=== PATIENT | male | born 1980 | race African-American/Black ===

== ENCOUNTER 2019-09-03 18:56 | Emergency (ER) | payer OTHER, SELFPAY ==
[2019-09-03 19:09] VITALS: BP 126/79; PULSE 100; RESP 18; TEMP 36.8; O2SAT 97
--- NOTE | 2019-09-03 19:25 | ED.GENADULT ---
HPI - General Adult General Chief complaint: Upper Respiratory Infection Stated complaint: CHEST PAIN COUGH ROSARIO Time Seen by Provider: 09/03/19 19:25 Source: patient and RN notes reviewed Mode of arrival: ambulatory Limitations: no limitations History of Present Illness HPI narrative: 38-year-old -H[place]ian male presents with complains of upper respiratory infection symptoms, sinus pressure and congestion, dry cough, wheezing, and dyspnea for 3 days. Delsym, Symbicort, Albuterol Inhaler without relief. Benoit says he has been away from his nebulizer treatment. History of Asthma, Bronchitis, and COPD with numerous hospilations and intubations. Constant dry cough and intermittent productive cough (yellow phlegm). Rhinorrhea and nasal congestion. Denies sore throat. No high fevers, drooling, neck or throat swelling. No chest pain. Exacerbation factors consist of smoke exposure. Denies nausea, vomiting, and abdominal pain. Tolerating liquids well. Remains active. Some parts of this dictation were generated by voice recognition software and may contain typographical and/or grammatical inaccuracies. Related Data Home Medications Medication Instructions Recorded Confirmed Incruse Ellipta 1 inh INHALATION DAILY 09/04/19 09/04/19 albuterol sulfate 2 puff INHALATION BID 09/04/19 09/04/19 amlodipine [Norvasc] 10 mg PO DAILY 09/04/19 09/04/19 chlorthalidone 25 mg PO DAILY 09/04/19 09/04/19 fluticasone propion-salmeterol 1 puff INHALATION BID 09/04/19 09/04/19 [AirDuo RespiClick] fluticasone propionate [Flonase 2 spray INTRANASAL DAILY 09/04/19 09/04/19 Allergy Relief] loratadine 10 mg PO DAILY 09/04/19 09/04/19 montelukast 10 mg PO DAILY 09/04/19 09/04/19 Allergies Allergy/AdvReac Type Severity Reaction Status Date / Time No Known Allergies Allergy Verified 09/03/19 19:29 Review of Systems Review of Systems: Narrative: CONSTITUTIONAL: Denies fever, chills, sweats. EYES: Denies visual changes, redness, discharge. ENT: Complains of rhinorrhea, congestion, sinus pressure and congestion. Denies sore throat, otalgia. CARDIOVASCULAR: Denies chest pain, palpitations, edema. RESPIRATORY: Complains of dyspnea, wheezing, dry cough, intermittent productive cough. GASTROINTESTINAL: Denies abdominal pain, nausea, vomiting, diarrhea. GENITOURINARY: Denies dysuria, hematuria, abnormal discharge. SKIN: Denies rash or itching. MUSCULOSKELETAL: Denies acute back pain, joint pain, or myalgia. NEUROLOGIC: Denies numbness or focal weakness. PSYCHIATRIC: Denies anxiety or depression. All systems reviewed & are unremarkable except as noted in HPI and below. [facility] Past Medical History Medical History (Updated 09/04/19 @ 09:38 by Sj Woods MD) Asthma Hypertension Marijuana smoker Torn tendon right biceps Surgical History Surgical History (Updated 09/03/19 @ 21:48 by Abhijeet Tao) No significant past surgical history Family History Family History (Updated 09/04/19 @ 09:35 by Sj Woods MD) Sibling Diabetes mellitus Father , in nursing home due to unknown causes No problems noted. Mother , at age 37 of unknown causes No problems noted. Social History Social History (Updated 09/04/19 @ 09:36 by Sj Woods MD) Years smoked: 5 Smoking status: Former smoker Tobacco type: cigarettes Second hand tobacco smoke exposure: Yes Smoking end date: 04/28/19 Alcohol intake: current Drinks per week: 3 Substance use: current Substance use type: marijuana Other substance usage details: smokes marijuana 1-2x/week Living arrangements: with family Additional living arrangements comments: Resides with stepmother. 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 Gender identity (if verbalized by the patient): Male Spiritual care concerns: No Agree to blood
[2019-09-03] MEDS: AZITHROMYCIN 250 MG TABLET 500 MG PO (19:39)
[2019-09-03] MEDS: predniSONE 20 MG TABLET 60 MG PO (19:39)
[2019-09-03] MEDS: ALBUTEROL SULFATE NEB 2.5 MG/3 ML INH INHALATION ×2 (19:40→20:13)
[2019-09-03] MEDS: IPRATROPIUM BR 0.02% INH SOLN 0.5 MG/2.5 ML VIAL INHALATION ×2 (19:40→20:12)
== END 2019-09-03 20:52 | disposition short-term general hospital (02) ==
PROVIDERS: Emergency Provider Nurse Practitioner Family
DX: J44.9 Chronic obstructive pulmonary disease, unspecified (principal)
CPT/HCPCS: 94640; 99205; A9270; G0463; J7512

== ENCOUNTER 2019-09-03 21:06 | Observation (INO) | payer OTHER, SELFPAY ==
[2019-09-03] VITALS (10 sets, daily range): BP systolic 111–177; BP diastolic 69–123; PULSE 112–139; RESP 20–25; TEMP 36.9; O2SAT 93–95
--- NOTE | ~2019-09-03 | XR_ITS ---
EXAMINATION: XR chest 1V portable DATE: 09/03/2019 22:32 INDICATION: Cough, congestion and asthma TECHNIQUE: frontal view of the chest was obtained. COMPARISON: None FINDINGS: Small calcified nodule at the right lower lung zone. No other airspace opacities, pulmonary edema, pl eural effusion or pneumothorax. The cardiomediastinal silhouette is normal. Visualized bones and soft tissues are unremarkable. IMPRESSION: 1. No acute cardiopulmonary disease. Reviewed, dictated and finalized at location A. ING INSTRUCTOR
--- NOTE | 2019-09-03 21:14 | ECG_ITS ---
Measurements Intervals [place] Rate: 113 P: 75 [place]: 96 QRS: 67 QRSD: 92 T: 58 QT: 297 QTc: 408 Interpretive Statements SINUS TACHYCARDIA WITH SHORT [place] INTERVAL DELAYED PRECORDIAL R/S TRANSITION BORDERLINE ST ABNORMALITY- INFERIOR LEADS BASELINE ARTIFACT- I, V2-V6 ABNORMAL ECG Electronically Signed On 09-04-2019 6:58:02 CASTING HOUSE LABORER by Jose Martin Lopez D.O.
[2019-09-03 21:23] LABS: Basophils Absolute Auto 0.1 K/mm3 (0.0-0.1); Basophils Percent Auto 0.5 % (0.2-1.2); Eosinophils Absolute Auto 1.5 K/mm3 (0-0.3); Eosinophils Percent Auto 11.2 % (0-4.4); Hematocrit 48.4 % (42.0-52.0); Hemoglobin 15.9 g/dL (14.0-18.0); Immature Granulocyte Absolute 0.08 K/mm3 (0.00-0.031); Immature Granulocyte Percent A 0.6 % (0-0.5); Lymphocytes Absolute Auto 3.05 K/mm3 (0.9-3.2); Lymphocytes Percent Auto 23.5 % (18.3-44.2); Mean Corpuscular HGB Conc 32.9 g/dl (32-36); Mean Corpuscular Hemoglobin 30.1 pg (26-34); Mean Corpuscular Volume 91.5 fl (80-100); Mean Platelet Volume 10.8 fl (7.4-10.4); Monocytes Absolute Auto 0.6 K/mm3 (0.1-0.6); Monocytes Percent Auto 4.4 % (2.6-8.5); Neutrophils Absolute Auto 7.8 K/mm3 (1.3-6.7); Neutrophils Percent Auto 59.8 % (45.5-73.1); Platelet Count Result 314 k/mm3 (150-375); Red Blood Count 5.29 M/mm3 (4.6-6.20); Red Cell Distribution Width 12.6 % (11.5-14.5)
--- NOTE | 2019-09-03 21:33 | ED.SOB ---
HPI - SOB/Dyspnea General Chief Complaint: Shortness of Breath/Dyspnea Stated Complaint: sob Time Seen by Provider: 09/03/19 21:32 Source: patient and RN notes reviewed Mode of arrival: ambulatory Limitations: no limitations History of Present Illness HPI Narrative: Pt is a 38 y/o male presenting to the ED c/o SOB. Pt reports he started experiencing SOB at rest 2 days ago. Pt notes he was diagnosed with COPD last June at [facility] and has been prescribed a Nebulizer, Albuterol, and Symbicort, and 3 days of Prednisone. Pt also reports CP at rest since yesterday, cough, N/V, not eating for 2-3 days due to dysphagia, REILLY, and nasal congestion. Pt denies any known positive sick contact. Pt states he has a Hx of HTN but does not take his medications as prescribed, and denies Hx's of DM or thyroid problems. Pt states he is still currently a smoker. Pertinent past history: COPD Onset (ago): day(s) (2) Associated symptoms: chest pain, cough, nausea/vomiting and other (Dysphagia; nasal congestion; REILLY) Related Data Home Medications Medication Instructions Recorded Confirmed Delsym 12 hour 09/03/19 Incruse Ellipta 09/03/19 Percocet 09/03/19 Symbicort 09/03/19 albuterol sulfate 09/03/19 promethazine 09/03/19 Allergies Allergy/AdvReac Type Severity Reaction Status Date / Time No Known Allergies Allergy Verified 09/03/19 19:29 Review of Systems Review of Systems: All systems reviewed & are unremarkable except as noted in HPI and below ENT: Reports nasal congestion Cardiovascular: Cardiovascular: Reports chest pain at rest Respiratory: Respiratory: Reports cough and Reports dyspnea Gastrointestinal: Gastrointestinal: Reports nausea, Reports vomiting and Reports other (Dysphagia) Neurologic: Reports headache(s) PMFSH Past Medical History Medical History (Updated 09/03/19 @ 23:09 by Quita Santamaria MD) Bronchitis Hypertension Torn tendon Surgical History Surgical History (Updated 09/03/19 @ 21:48 by Abhijeet Tao) No significant past surgical history Social History Social History Smoking status: Current every day smoker Gender identity (if verbalized by the patient): Male Exam Narrative: Exam Narrative: General appearance: Well-developed, well-nourished, anxious, restless, at the bedside Skin: Normal color Head: Normocephalic, nontraumatic Eyes: Clear conjunctiva ENT: Oropharynx normal, ears normal, nose normal Neck: Supple, nontender Chest and respiratory: Airway patent, mild respiratory distress, no accessory muscle use diffuse wheezing and rhonchi bilaterally, anteroposteriorly. Heart: Regular rate/rhythm Abdomen: Soft, nontender, no organomegaly, quiet bowel sounds Vascular: Normal peripheral pulses, normal capillary refill. Musculoskeletal: Normal range of motion, nontender back Neurologic: Alert and oriented ?3, ROLLER COASTER DESIGNER is normal as tested, no gross motor deficit Course Course Emergency Course: Improving Reevaluation(s) Reevaluation #1: Patient still having severe diffuse wheezing bilaterally, with severe coughing Date: 09/03/19 Time: 23:17 Consultations Consultation #1: Dr. Lindo Date: 09/03/19 Time: 23:53 Vital Signs Vital signs: Vital Signs Pulse Rate 139 H 09/03/19 21:14 Temperature 36.9 C 09/03/19 21:21 Pulse Rate 121 H 09/03/19 23:26 Respiratory Rate 25 H 09/03/19 23:26 Blood Pressure 128/99 H 09/03/19 23:26 Pulse Oximetry 93 09/03/19 23:26 MDM - SOB/Dyspnea MDM Narrative Medical decision making narrative: COPD exacerbation secondary to viral infection is my concern. Patient is noncompliance with medication, does n
[2019-09-03 21:35] LABS: Blood Urea Nitrogen 11 mg/dL (9-20); Calcium 9.9 mg/dL (8.4-10.2); Carbon Dioxide 23 mmol/L (22-30); Chloride 97 mmol/L (98-107); Estimated Glomerular Filt Rate > 60; Glucose 140 mg/dL (75-110); Potassium 3.8 mmol/L (3.4-5.0); Sodium 136 mmol/L (137-145)
[2019-09-03 22:08] LABS: Alanine Aminotransferase 16 U/L (4-50); Albumin Level 4.9 g/dL (3.5-5.1); Alkaline Phosphatase 344 U/L (38-126); Aspartate Amino Transferase 26 U/L (17-59)
[2019-09-03] MEDS: ALBUTEROL SULFATE NEB 2.5 MG/0.5 ML INH 5 MG INHALATION (22:09)
[2019-09-03] MEDS: IPRATROPIUM BR 0.02% INH SOLN 0.5 MG/2.5 ML VIAL INHALATION (22:09)
[2019-09-03 22:18] LABS: Alveolar/Arterial O2 Gradient 71.6 mmHg; Base Excess ABG -1.5 mEq/l (+/-2.0); Fractional Inspired Oxygen 21 %; HCO3 ABG 23.5 mEq/l (22.0-26.0); Oxygen Content ABG 13.3 %vol (16.0-22.0); Oxyhemoglobin 56.8 % THb (90.0-100.0); PCO2 ABG 40.8 mmHg (35.0-45.0); Total Hemoglobin 16.7 g/dL (12.0-18.0); pH ABG 7.379 (7.350-7.450)
[2019-09-03 22:19] LABS: NT Pro B Type Natriuretic Pept 32 PG/ML (5-100)
[2019-09-03 22:20] LABS: Troponin I < 0.012 ng/mL (0.000-0.034)
[2019-09-03 22:21] LABS: PO2 ABG 29.3 mmHg (80.0-100.0)
[2019-09-03 22:22] LABS: Device ROOM AIR; Modified Allen's Test Pass; Oxygen Saturation ABG 54.4 % (95.0-100.0); Site Drawn RIGHT RADIAL
--- NOTE | 2019-09-03 23:26 | PC.NURSE ---
pt refusing to keep blood pressure cuff and pulse ox on. pt educate don importance of each and told nurses/doctors can see his monitor in the nurses station at all time. pt states he understands, still taking cuff and pulse ox off when this nurse leaves the room. notified.
[2019-09-04] VITALS (11 sets, daily range): BP systolic 125–169; BP diastolic 84–95; PULSE 81–120; RESP 18–22; TEMP 36.2–36.6; O2SAT 92–99; BMI 37.8
[2019-09-04] MEDS: methylPREDNISolone SOD SUCC 125 MG VIAL 60 MG IV PUSH (00:56)
--- NOTE | 2019-09-04 01:03 | ADMGEN ---
This patient, Benoit Singleton, was admitted to Medical Room 246-. Patient/family oriented to hospital policies and general routines including ID bracelet, bed and alarms, visiting hours, pain management, procedures, bathroom and other care routines, personal items, smoking policy, room service/diet, and visiting hours. Valuables list has been completed. Information on how to activate the Rapid Response Team has been discussed. Patient/Family are encouraged to report perceived risks to care and to ask questions if they do not understand what they are told or what they should do.
[2019-09-04] MEDS: ACETAMINOPHEN 325 MG TABLET 650 MG PO ×3 (02:42→15:11)
[2019-09-04] MEDS: ALBUTEROL SULFATE NEB 2.5 MG/0.5 ML INH 5 MG INHALATION ×4 (02:53→21:20)
[2019-09-04] MEDS: IPRATROPIUM BR 0.02% INH SOLN 0.5 MG/2.5 ML VIAL INHALATION ×4 (02:53→21:20)
[2019-09-04] MEDS: CHLORTHALIDONE 25 MG TABLET PO (08:46)
[2019-09-04] MEDS: MONTELUKAST SODIUM 10 MG TABLET PO (08:46)
[2019-09-04] MEDS: LORATADINE 10 MG TABLET PO (08:46)
[2019-09-04] MEDS: AMLODIPINE BESYLATE 5 MG TABLET 10 MG PO (08:46)
[2019-09-04] MEDS: predniSONE 20 MG TABLET 60 MG PO (08:47)
[2019-09-04] MEDS: FLUTICASONE PROPIONATE 0.05% NA SPR 16 GM BTL (*BKC) 2 SPRAY NASAL (08:48)
--- NOTE | 2019-09-04 09:28 | PM.IMHP ---
H&P: HPI History of Present Illness Chief complaint: copd exacerbation upper respiratory viral infectio Narrative: Benoit Singleton is a 38 year old male with a childhood history of asthma was recently diagnosed with COPD. He had extensive evaluation of [facility] during a 2 week hospitalization in June 2019. He had a pulmonary CTA as well as extensive lab evaluation. Records from there pending. He was doing well until 3 days prior to admission he began to experience nasal congestion and a funny sensation in his front teeth. He developed a nonproductive cough. Purulence yellow nasal drainage. He developed increasing dyspnea and by the day of admission was dyspneic at rest. No hemoptysis or epistaxis. No fevers or chills or sweats. His chest hurt when he cough. He has chronic pain in the right arm and chest region. Worse with coughing or breathing. He went to urgent care and was sent from there to the emergency department. After receiving steroids and nebulizer treatment he was still wheezing and short of breath. He was smoking about 1 cigarette per day. He quit 3 months ago when he was diagnosed with COPD. Review of Systems Review of Systems: All systems reviewed & are unremarkable except as noted in HPI and below PMFSH Past Medical History Medical History (Updated 09/04/19 @ 09:38 by Sj Woods MD) Asthma Hypertension Marijuana smoker Torn tendon right biceps Surgical History Surgical History (Updated 09/03/19 @ 21:48 by Abhijeet Tao) No significant past surgical history Family History Family History (Updated 09/04/19 @ 09:35 by Sj Woods MD) Sibling Diabetes mellitus Father , in nursing home due to unknown causes No problems noted. Mother , at age 37 of unknown causes No problems noted. Social History Social History (Updated 09/04/19 @ 09:36 by Sj Woods MD) Years smoked: 5 Smoking status: Former smoker Tobacco type: cigarettes Second hand tobacco smoke exposure: Yes Smoking end date: 04/28/19 Alcohol intake: current Drinks per week: 3 Substance use: current Substance use type: marijuana Other substance usage details: smokes marijuana 1-2x/week Living arrangements: with family Additional living arrangements comments: Resides with stepmother. 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 Gender identity (if verbalized by the patient): Male Spiritual care concerns: No Agree to blood products: Yes Meds Home Medications and Allergies Home Medications Medication Instructions Recorded Confirmed Type albuterol sulfate 2 puff INHALATION BID 09/04/19 09/04/19 History amlodipine [Norvasc] 10 mg PO DAILY 09/04/19 09/04/19 History chlorthalidone 25 mg PO DAILY 09/04/19 09/04/19 History fluticasone propion-salmeterol 1 puff INHALATION BID 09/04/19 09/04/19 History [AirDuo RespiClick] fluticasone propionate [Flonase 2 spray INTRANASAL DAILY 09/04/19 09/04/19 History Allergy Relief] loratadine 10 mg PO DAILY 09/04/19 09/04/19 History montelukast 10 mg PO DAILY 09/04/19 09/04/19 History promethazine 12.5 mg PO TID PRN 09/04/19 09/04/19 History umeclidinium [Incruse Ellipta] 1 inh INHALATION DAILY 09/04/19 09/04/19 History Allergies Allergy/AdvReac Type Severity Reaction Status Date / Time No Known Allergies Allergy Verified 09/03/19 19:29 Vital Signs Vital Signs - 24 hr 09/03/19 21:14 09/03/19 21:21 09/03/19 21:28 Temperature 98.5 F Pulse Rate 139 H 136 H Respiratory Rate 22 H Blood Pressure 161/104 H Pulse Oximetry 95 94 09/03/19 21:45 09/03/19 22:07 09/03/19 22:09 Temperature Pulse Rate 119 H 115 H 118 H Respiratory Rate 23 H 20 23 H Blood Pressure 177/123 H 144/89 H Pulse Oximetry 95 95 09/03/19 22:15 09/03/19 22:58 09/03/19 22:59 Temperature Puls
[2019-09-04] MEDS: GUAIFENESIN/DEXTROMETHORPHAN 10 ML UDC PO ×2 (11:36→21:53)
[2019-09-04] MEDS: methylPREDNISolone SOD SUCC 125 MG VIAL IV PUSH ×2 (11:36→17:02)
[2019-09-04] MEDS: AMPICILLIN SODIUM/SULBACTAM 3 GM in SODIUM CHLORIDE 0.9% IV 100 ML IVPB ×2 (11:37→17:02)
[2019-09-04] MEDS: CYCLOBENZAPRINE HCL 10 MG TABLET PO (22:54)
[2019-09-05] MEDS: AMPICILLIN SODIUM/SULBACTAM 3 GM in SODIUM CHLORIDE 0.9% IV 100 ML IVPB ×2 (00:25→05:29)
[2019-09-05] MEDS: methylPREDNISolone SOD SUCC 125 MG VIAL IV PUSH ×2 (00:26→05:30)
[2019-09-05] MEDS: ACETAMINOPHEN 325 MG TABLET 650 MG PO ×2 (00:33→08:12)
[2019-09-05 02:20] VITALS: PULSE 103; RESP 20
[2019-09-05 02:28] VITALS: PULSE 101; RESP 20
[2019-09-05] MEDS: ALBUTEROL SULFATE NEB 2.5 MG/0.5 ML INH 5 MG INHALATION ×2 (02:28→09:42)
[2019-09-05] MEDS: IPRATROPIUM BR 0.02% INH SOLN 0.5 MG/2.5 ML VIAL INHALATION ×2 (02:28→09:42)
[2019-09-05] MEDS: GUAIFENESIN/DEXTROMETHORPHAN 10 ML UDC PO (04:36)
[2019-09-05 06:00] VITALS: BP 147/84; PULSE 112; RESP 112; TEMP 36.7
[2019-09-05] MEDS: AMLODIPINE BESYLATE 5 MG TABLET 10 MG PO (08:15)
[2019-09-05] MEDS: FLUTICASONE PROPIONATE 0.05% NA SPR 16 GM BTL (*BKC) 2 SPRAY NASAL (08:16)
[2019-09-05] MEDS: CHLORTHALIDONE 25 MG TABLET PO (08:16)
[2019-09-05] MEDS: MONTELUKAST SODIUM 10 MG TABLET PO (08:17)
[2019-09-05] MEDS: ENOXAPARIN 40 MG/0.4 ML SYRINGE SUB-Q (08:17)
[2019-09-05] MEDS: LORATADINE 10 MG TABLET PO (08:17)
[2019-09-05 09:44] VITALS: PULSE 100; RESP 18
[2019-09-05 10:00] VITALS: BP 148/71; PULSE 98; RESP 18; TEMP 36.1; O2SAT 97
--- NOTE | 2019-09-05 10:52 | PM.DS ---
DS: Diagnosis Admitting Diagnosis Admitting Diagnosis: Acute maxillary sinusitis, unspecified Discharge Diagnosis (1) Acute sinusitis: Qualifiers: Sinusitis location: maxillary Recurrence: non-recurrent Qualified Code(s): J01.00 - Acute maxillary sinusitis, unspecified Code(s): J01.90 - Acute sinusitis, unspecified Status: Acute Assessment and Plan: Tender over right maxillary sinus with associated congestion and purulent nasal discharge and dental pain IV Unasyn --> Augmentin (2) COPD (chronic obstructive pulmonary disease): Qualifiers: COPD type: COPD with acute exacerbation Qualified Code(s): J44.1 - Chronic obstructive pulmonary disease with (acute) exacerbation Code(s): J44.9 - Chronic obstructive pulmonary disease, unspecified Status: Acute Assessment and Plan: Likely due to acute sinusitis with possible coexistent bronchitis IV Solu-Medrol, nebulized bronchodilators, IV Unasyn --> Prednisone and Augmentin (3) Asthma: Qualifiers: Asthma severity: severe Asthma persistence: persistent Asthma complication type: with acute exacerbation Qualified Code(s): J45.51 - Severe persistent asthma with (acute) exacerbation Code(s): J45.909 - Unspecified asthma, uncomplicated Status: Acute Assessment and Plan: Likely due to acute sinusitis with possible coexistent bronchitis IV Solu-Medrol, nebulized bronchodilators, IV Unasyn --> Prednisone and Augmentin Obtain records from cynthia Lu[facility] 09/04 (4) Marijuana smoker: Code(s): F12.90 - Cannabis use, unspecified, uncomplicated Status: Acute Assessment and Plan: Patient is aware of need to quit and 3 minutes was spent discussing smoking cessation DS: Summary Hospital Course Reason for hospitalization: Wheezing and dyspnea Hospital Course: Admitted with wheezy dyspnea facial discomfort. Had right maxillary tenderness. Prieb line nasal discharge. Diffuse inspiratory and expiratory wheezes. Responded nicely to IV Unasyn, steroids, and bronchodilators. Required usual analgesics during hospitalization. By day of discharge was up and about independently feeling much better and tolerating diet. Status at Discharge Functional status at discharge: independent ambulation Overall status at discharge: patient is back to baseline Time Spent with Patient Time attestation: Total time spent providing and/or coordinating discharge services: 35 min Time spent: Greater than 30 minutes Exam Narrative: Exam Narrative: HEENT: EOMI, PERRL, pharyngeal mucosa pink and intact NECK: No JVD CHEST: Increased anterior-posterior diameter. Scattered wheezes at bases, otherwise clear. HEART: NL S1/S2, regular, no murmur ABDOMEN: BS+, soft, nontender, no mass, no bruits EXTREMITIES: No cyanosis, edema, or clubbing NEUROLOGIC: CN intact and symmetric to inspection. MUSCULOSKELETAL: Tone and strength symmetric. Right biceps with proximal nodule. PSYCH: Alert. Oriented to person, place, and time. DS: Data Data Completed and Pending Labs on day of discharge: Preliminary micro results at discharge 09/03/19 22:14 Blood Culture - Preliminary Blood 09/03/19 22:14 Blood Culture - Preliminary Blood Discharge Plan Discharge Attending physician on discharge: Sj Woods Discharging Clinician: Sj Woods Patient Disposition: Home, Self-Care Activity: as tolerated Diet: regular Patient Instructions: Antibiotic Form, Upper Respiratory Infection (DC), COPD (Chronic Obstructive Pulmonary Disease) (DC) Stand Alone Forms: General Discharge Information Follow-up/Referrals: UNKNOWN,DOCTOR [Primary Care Provider] - 1 Week (See Dr. Fili Sy in one week) Discharge Medications: New oxycodone-acetaminophen [Percocet] 10-325 mg tablet 1 tablet PO Q6H PRN (Reason: pain) Qty: 30 RF: 0 prednisone 10 mg tablet See Rx Instructions .ROUTE .CO
== END 2019-09-05 12:21 | disposition home or self-care (01) ==
LOC: ANHED 23:50 → ANH2MED 09-04 04:03
PROVIDERS: Admitting Provider Internal Medicine; Emergency Provider Emergency Medicine; Visit Provider Internal Medicine
DX: J44.1 Chronic obstructive pulmonary disease with (acute) exacerbation (principal); J45.51 Severe persistent asthma with (acute) exacerbation; J01.00 Acute maxillary sinusitis, unspecified; F12.90 Cannabis use, unspecified, uncomplicated; I10 Essential (primary) hypertension; F17.210 Nicotine dependence, cigarettes, uncomplicated
CPT/HCPCS: 36415; 36600; 71045; 80048; 80076; 82805; 83880; 84484; 85025; 87040; 87804; 93005; 94640; 96365; 96366; 96372; 96375; 96376; 99285; A9270; G0378; G0379; J0295; J1650; J2930; J7512

== ENCOUNTER 2019-09-29 01:33 | Observation (INO) | payer OTHER, SELFPAY ==
[2019-09-29] VITALS (17 sets, daily range): BP systolic 135–171; BP diastolic 84–111; PULSE 96–130; RESP 16–33; TEMP 36.2–36.8; O2SAT 93–100; BMI 56.2
--- NOTE | ~2019-09-29 | CT_ITS ---
EXAMINATION: CTA chest PE protocol DATE: 09/29/2019 13:19 INDICATION: Dyspnea on exertion TECHNIQUE: Computed tomography (CT) pulmonary angiogram of the chest was performed with 100 mL Omnipa que-350 intravenous contrast. Additional 3D reconstructions utilizing coronal maximum intensity proje ction (MIP) were performed. Automated exposure control and iterative reconstruction technique were em ployed. The dose-length product was 1380.74 mGy-cm. COMPARISON: None FINDINGS: There is poor contrast opacification of the pulmonary arteries with the peak of the contrast bolus santana ving passed into the pulmonary veins. This renders evaluation for pulmonary embolism essentially nond iagnostic. There is diffuse mild bronchial wall thickening. There is mild mucous plugging within mult iple subsegmental bronchi throughout all lobes of both lungs. No pneumonia or other pulmonary infiltr ates, pulmonary edema or pleural effusion. Calcified intrafissural lymph node along the right minor f issure. Heart size normal. Atherosclerotic coronary artery calcification. Thoracic aorta is normal in caliber with no dissection. No pathologically enlarged thoracic lymphadenopathy. Bones are unremarka ble. IMPRESSION: 1. Nondiagnostic study for pulmonary embolism due to poor contrast opacification of the pulmonary art eries due to timing of the contrast bolus. Could consider either repeat study or VQ scan. 2. Diffuse bronchitis with scattered mucous plugging of numerous subsegmental bronchi throughout all lobes of both lungs. Reviewed, dictated and finalized at location A. IGN EXCHANGE TRADER IMPRESSION: 1. Nondiagnostic study for pulmonary embolism due to poor contrast opacificatio n of the pulmonary arteries due to timing of the contrast bolus. Could consider either repeat study or VQ scan. 2. Diffuse bronchitis with scattered mucous plugging of numerous subsegmental b ronchi throughout all lobes of both lungs.
--- NOTE | ~2019-09-29 | XR_ITS ---
EXAMINATION: XR chest 1V portable DATE: 09/29/2019 02:09 INDICATION: Shortness of breath and cough TECHNIQUE: frontal view of the chest was obtained. COMPARISON: Chest radiograph dated 09/03/2019 FINDINGS: The lungs remain clear with no focal airspace opacities, pulmonary edema, pleural effusion or pneumot horax. The cardiomediastinal silhouette is normal. Visualized bones and soft tissues are unremarkable . IMPRESSION: 1. No acute cardiopulmonary disease. Reviewed, dictated and finalized at location A. INE INKER
--- NOTE | 2019-09-29 01:34 | ED.SOB ---
HPI - SOB/Dyspnea General Chief Complaint: Shortness of Breath/Dyspnea Stated Complaint: diff breathing Time Seen by Provider: 09/29/19 01:34 Source: patient and RN notes reviewed Mode of arrival: EMS Limitations: no limitations History of Present Illness HPI Narrative: Pt is a 38 y/o male who presents to the ED, via EMS, with c/o SOB that began a few days ago. Pt states that his SOB is aggravated by lying flat. Pt received 2 Albuterol treatments by EMS en route to the ED. He notes that he has a respirator and inhalers at home. Pt denies being on oxygen at home. He notes that he was seen here at [facility] on 09/05/19 for the same sx. Pt denies CP and a fever. elicited complaint: shortness of breath Pertinent past history: COPD and asthma Onset (ago): day(s) (few) Timing: constant Exacerbating factors: lying flat Known history of: COPD and asthma Associated symptoms: denies other symptoms Treatment prior to arrival: oxygen and other (Albuterol treatment x2) Related Data Home oxygen amount: none Home Medications Medication Instructions Recorded Confirmed Incruse Ellipta 1 inh INHALATION DAILY 09/04/19 09/04/19 albuterol sulfate 2 puff INHALATION BID 09/04/19 09/04/19 amlodipine [Norvasc] 10 mg PO DAILY 09/04/19 09/04/19 chlorthalidone 25 mg PO DAILY 09/04/19 09/04/19 fluticasone propion-salmeterol 1 puff INHALATION BID 09/04/19 09/04/19 [AirDuo RespiClick] fluticasone propionate [Flonase 2 spray INTRANASAL DAILY 09/04/19 09/04/19 Allergy Relief] loratadine 10 mg PO DAILY 09/04/19 09/04/19 montelukast 10 mg PO DAILY 09/04/19 09/04/19 Allergies Allergy/AdvReac Type Severity Reaction Status Date / Time No Known Allergies Allergy Verified 09/29/19 01:41 Review of Systems Review of Systems: All systems reviewed & are unremarkable except as noted in HPI and below Constitutional: Constitutional: Denies fever(s) Cardiovascular: Cardiovascular: Denies chest pain Respiratory: Respiratory: Reports dyspnea PMFSH Past Medical History Medical History (Updated 09/29/19 @ 02:55 by Jeffery Earl MD) Asthma Hypertension Marijuana smoker Torn tendon right biceps Surgical History Surgical History (Updated 09/03/19 @ 21:48 by Abhijeet Tao) No significant past surgical history Family History Family History (Updated 09/04/19 @ 09:35 by Sj Woods MD) Sibling Diabetes mellitus Father , in detention due to unknown causes No problems noted. Mother , at age 37 of unknown causes No problems noted. Social History Social History (Updated 09/04/19 @ 09:36 by Sj Woods MD) Years smoked: 5 Smoking status: Former smoker Tobacco type: cigarettes Second hand tobacco smoke exposure: Yes Smoking end date: 04/28/19 Alcohol intake: current Drinks per week: 3 Substance use: current Substance use type: marijuana Other substance usage details: smokes marijuana 1-2x/week Additional living arrangements comments: Resides with stepmother. 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 Gender identity (if verbalized by the patient): Male Spiritual care concerns: No Agree to blood products: Yes Exam Narrative: Exam Narrative: GENERAL: Well-nourished, and in mod respiratory distress. HEAD: Normocephalic, atraumatic. EYES: PERRLA and EOMI. ENT: Nares clear, Mucous membranes moist. NECK: Supple. CHEST: In Moderate respiratory distress. HEART: Regular rate and rhythm. No murmur heard. Normal peripheral pulses. ABDOMEN: Soft, non tender, non distended, normal active bowel sounds. EXTREMITIES: Normal range of motion. No edema. SKIN: Warm, dry, no rash. NEURO: No focal deficits. Alert and oriented x3. PSYCH: Normal mood and affect. Course Course Emergency Course: Patient feels slightly better, however he still has mild wheeze bilaterally. I informed him about his lab work, ashwin
[2019-09-29] MEDS: methylPREDNISolone SOD SUCC 125 MG VIAL IV PUSH (01:48)
[2019-09-29] MEDS: IPRATROPIUM BR 0.02% INH SOLN 0.5 MG/2.5 ML VIAL INHALATION ×4 (01:49→19:51)
[2019-09-29] MEDS: ALBUTEROL SULFATE NEB 2.5 MG/0.5 ML INH 5 MG INHALATION ×4 (01:49→19:50)
--- NOTE | 2019-09-29 01:54 | PCRCNOTE ---
Patient refused ABG.
[2019-09-29 01:56] LABS: Basophils Absolute Auto 0.1 K/mm3 (0.0-0.1); Basophils Percent Auto 1.1 % (0.2-1.2); Eosinophils Absolute Auto 1.4 K/mm3 (0-0.3); Eosinophils Percent Auto 16.9 % (0-4.4); Hematocrit 43.5 % (42.0-52.0); Hemoglobin 14.4 g/dL (14.0-18.0); Immature Granulocyte Absolute 0.01 K/mm3 (0.00-0.031); Immature Granulocyte Percent A 0.1 % (0-0.5); Lymphocytes Absolute Auto 3.42 K/mm3 (0.9-3.2); Lymphocytes Percent Auto 42.4 % (18.3-44.2); Mean Corpuscular HGB Conc 33.1 g/dl (32-36); Mean Corpuscular Hemoglobin 30.1 pg (26-34); Mean Platelet Volume 10.5 fl (7.4-10.4); Monocytes Absolute Auto 0.6 K/mm3 (0.1-0.6); Monocytes Percent Auto 7.9 % (2.6-8.5); Neutrophils Absolute Auto 2.6 K/mm3 (1.3-6.7); Neutrophils Percent Auto 31.6 % (45.5-73.1); Platelet Count Result 232 k/mm3 (150-375); Red Blood Count 4.78 M/mm3 (4.6-6.20); Red Cell Distribution Width 12.7 % (11.5-14.5); White Blood Count 8.1 K/mm3 (4.5-10.0)
[2019-09-29 02:08] LABS: Alanine Aminotransferase 33 U/L (4-50); Albumin Level 4.9 g/dL (3.5-5.1); Alkaline Phosphatase 187 U/L (38-126); Aspartate Amino Transferase 37 U/L (17-59); Bilirubin,Total 0.4 mg/dL (0.2-1.3); Blood Urea Nitrogen 11 mg/dL (9-20); Calcium 9.4 mg/dL (8.4-10.2); Carbon Dioxide 24 mmol/L (22-30); Chloride 101 mmol/L (98-107); Estimated Glomerular Filt Rate > 60; Glucose 102 mg/dL (75-110); Sodium 141 mmol/L (137-145)
--- NOTE | 2019-09-29 02:19 | ECG_ITS ---
Measurements Intervals [place] Rate: 113 P: 74 [place]: 96 QRS: 72 QRSD: 85 T: 51 QT: 303 QTc: 416 Interpretive Statements SINUS TACHYCARDIA WITH SHORT [place] INTERVAL BORDERLINE ST ABNORMALITY- INFERIOR LEADS BASELINE ARTIFACT- AVF ABNORMAL ECG Electronically Signed On 09-29-2019 6:47:34 DIGITAL LIBRARIAN by Jose Martin Lopez D.O.
[2019-09-29 02:21] LABS: NT Pro B Type Natriuretic Pept 18 PG/ML (5-100); Troponin I < 0.012 ng/mL (0.000-0.034)
--- NOTE | 2019-09-29 02:54 | PC.NURSE ---
called respiratory to draw blood gas
--- NOTE | 2019-09-29 03:26 | PM.IMHP ---
H&P: HPI History of Present Illness Chief complaint: COPD EXACERBATION Narrative: This is a 38 year old male with known history of COPD and multiple recent hospitalizations secondary to COPD exacerbation who was just admitted to our hospitalist service a few weeks ago. Tonight the patient returned to the hospital with a complaint of worsening shortness of breath, coughing, and wheezing over the past few days. Tonight his shortness of breath became severe and he decided to come to the ER for evaluation. He admits to me that he has been out of his home medication for some time and does not have a scheduled follow up with his PCP until the end of September. He tells me that he has had to go to the ER for treatments since he had been out. He denies any fever or chills. No chest pain, no sore throat or ear pain. He denies any abdominal pain, LE swelling, open wounds, rashes, dysuria, hematuria, back pain or focal neurological symptoms. The patient was treated in the ER tonight but continues to be very short of breath. We have been asked to admit him to the hospital for further care. He quit smoking a few months ago and states that he has not goneaob No other complaints. Review of Systems Review of Systems: All systems reviewed & are unremarkable except as noted in HPI and below PMFSH Past Medical History Medical History Asthma Hypertension Marijuana smoker Torn tendon right biceps Surgical History Surgical History No significant past surgical history Family History Family History Sibling Diabetes mellitus Father , in longterm due to unknown causes No problems noted. Mother , at age 37 of unknown causes No problems noted. Social History Social History Years smoked: 5 Smoking status: Former smoker Tobacco type: cigarettes Second hand tobacco smoke exposure: Yes Smoking end date: 04/28/19 Alcohol intake: unknown Drinks per week: 3 Substance use: unknown Substance use type: does not use Other substance usage details: smokes marijuana 1-2x/week Additional living arrangements comments: Resides with stepmother. 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 Gender identity (if verbalized by the patient): Male Spiritual care concerns: No Agree to blood products: No Meds Home Medications and Allergies Home Medications Medication Instructions Recorded Confirmed Type Incruse Ellipta 1 inh INHALATION DAILY 09/04/19 09/04/19 History albuterol sulfate 2 puff INHALATION BID 09/04/19 09/04/19 History amlodipine [Norvasc] 10 mg PO DAILY 09/04/19 09/04/19 History chlorthalidone 25 mg PO DAILY 09/04/19 09/04/19 History fluticasone propion-salmeterol 1 puff INHALATION BID 09/04/19 09/04/19 History [AirDuo RespiClick] fluticasone propionate [Flonase 2 spray INTRANASAL DAILY 09/04/19 09/04/19 History Allergy Relief] loratadine 10 mg PO DAILY 09/04/19 09/04/19 History montelukast 10 mg PO DAILY 09/04/19 09/04/19 History amoxicillin-pot clavulanate 1 tablet PO Q12H #13 tablet 09/05/19 Rx oxycodone-acetaminophen [Percocet] 1 tablet PO Q6H PRN #30 tablet 09/05/19 Rx prednisone See Rx Instructions .ROUTE 09/05/19 Rx .COMPLEX #30 tablet promethazine 12.5 mg PO TID PRN #240 ml 09/05/19 Rx Allergies Allergy/AdvReac Type Severity Reaction Status Date / Time No Known Allergies Allergy Verified 09/29/19 01:41 Vital Signs Vital Signs - 24 hr 09/29/19 01:31 09/29/19 01:49 09/29/19 01:52 Temperature 36.4 C Pulse Rate 130 H 128 H 125 H Respiratory Rate 33 H 28 H Blood Pressure 171/111 H Pulse Oximetry 95 98 09/29/19 01:57 09/29/19 02:39 09/29/19 03:20 Malika
--- NOTE | 2019-09-29 03:36 | ADMGEN ---
This patient, Benoit Singleton, was admitted to 2 Medical Room 251-. Patient/family oriented to hospital policies and general routines including ID bracelet, bed and alarms, visiting hours, pain management, procedures, bathroom and other care routines, personal items, smoking policy, room service/diet, and visiting hours. Valuables list has been completed. Information on how to activate the Rapid Response Team has been discussed. Patient/Family are encouraged to report perceived risks to care and to ask questions if they do not understand what they are told or what they should do.
[2019-09-29] MEDS: ONDANSETRON INJ 4 MG/2 ML VIAL IV PUSH (04:00)
[2019-09-29] MEDS: MORPHINE SULFATE 4 MG/ML INJ IV PUSH ×2 (04:00→06:14)
[2019-09-29] MEDS: predniSONE 20 MG TABLET 60 MG PO (07:46)
--- NOTE | 2019-09-29 07:57 | PC.NURSE ---
Called AIDE Hightower to inform her of patient's pain not being controlled with morpine IV push Q2hr. Patient states he takes percocet at home. Also notified her of complaints of coughing and congestion even after breathing treatment. Shruthi stated she would look into his medications and put in orders.
[2019-09-29] MEDS: AMLODIPINE BESYLATE 5 MG TABLET 10 MG PO (10:09)
[2019-09-29] MEDS: CHLORTHALIDONE 25 MG TABLET PO (10:10)
[2019-09-29] MEDS: FLUTICASONE PROPIONATE 0.05% NA SPR 16 GM BTL (*BKC) 2 SPRAY NASAL (10:10)
[2019-09-29] MEDS: MONTELUKAST SODIUM 10 MG TABLET PO (10:10)
[2019-09-29] MEDS: LORATADINE 10 MG TABLET PO (10:10)
[2019-09-29] MEDS: ACETAMINOPHEN 325 MG TABLET 650 MG PO ×3 (10:13→18:41)
--- NOTE | 2019-09-29 10:27 | PC.NURSE ---
Housekeeping found empty beer bottles inside of socks in patients trashcan. Discussed with patient that this is obviously not allowed on hospital grounds. He stated that was not his and went through belongings at the bedside with me. No other alcohol found in patients room. Notified Shruthi Hamlin. Received orders to start patient on CIWA. Will continue to monitor.
--- NOTE | 2019-09-29 11:19 | PM.IMPN ---
Progress Note: A&P Assessment and Plan (1) Acute exacerbation of COPD with asthma: Code(s): J44.1 - Chronic obstructive pulmonary disease with (acute) exacerbation; J45.901 - Unspecified asthma with (acute) exacerbation Status: Acute Assessment and Plan: -----patient has significant dyspnea on exertion and pleuritic chest pain as well as wheezing. I will change his oral steroids to IV steroids 40 mg Q 8 to see how he does. Although he feels short of breath, there is no hypoxia noted and we will wean oxygen as tolerated. Start Symbicort in lieu of his home inhaler since he is unable to get that. Will continue breathing treatments at this time. Chest x-ray looks okay but I am going to start treatment for pneumonia since he is coughing up green sputum, has significant lung sounds, although this may be due to a virus. Will obtain CTA to rule out PE since he has been hospitalized recently and is having dyspnea on exertion. Will send sputum for culture. Patient is refusing flu swab but his symptoms are consistent with the flu so at this time I will put him on isolation. At this time the chest pain appears pleuritic. Will observe for further symptoms. (2) HTN (hypertension) with goal to be determined: Code(s): I10 - Essential (primary) hypertension Status: Chronic Assessment and Plan: ----last blood pressure 135/84. Will continue with home medications. PRN hydralazine w/ parameters. (3) Marijuana smoker: Code(s): F12.90 - Cannabis use, unspecified, uncomplicated Status: Chronic Assessment and Plan: ------Marijuana cessation was advised. (4) Alcohol abuse: Code(s): F10.10 - Alcohol abuse, uncomplicated Status: Acute Assessment and Plan: -----beer cans found in the patient's room. He is denying this. Will do CWIA. No hallucinations at this time (5) Torn tendon: Code(s): T14.8XXA - Other injury of unspecified body region, initial encounter Status: Acute Assessment and Plan: -----I checked with the prescription monitoring program and he does take 10 mg of oxycodone for this. I will continue this while he is here but he needs to follow-up with his primary care doctor. He has an appointment later this month Time Spent With Patient Time with patient: 25 - 35 minutes Subjective Date/time seen: 09/29/19 11:19 Interval history: Pt is a 38-year-old male here for COPD exacerbation. Patient was seen today and states that he has a lot of dyspnea on exertion but no shortness of breath at rest. He is coughing up white/green phlegm. He says this is been going on for 2 days. He refuses to be tested for the flu as he does not tolerate the flu swab. He says he is having a lot of pain in his right arm that has a chronic tear in it. He is now having some right-sided chest pain that is worse when breathing in and when he feels this pain if he holds his breath it makes it go way. He has had no leg swelling, personal history of DVT, or family history of blood clots. He says that he did feel better after being hospitalized a few weeks ago but is now doing worse. He has not been able to see his primary care physician for unknown reasons but has an appointment later this month. He says he does not usually wear oxygen at home but does nebulizers which do help but he is out. The patient is upset about his pain medication. Reportedly there were beer cans found in the room and he swears it was not him. He says he drinks socially on the weekends but not during the week. He yesterday he drink around 2:00 p.m. he has not had any hallucinations or tremors and is annoyed by these questions. I talked to him about the importance of a CIWA and he understands and he agrees to continue to be monitored and will let us know if he starts to feel bad. He denies nausea, vomiting, leg swelling, fevers, dysuria. He does not utilize oxygen at. He does have a s
--- NOTE | 2019-09-29 13:02 | PC.NURSE ---
To Radiology per wheelchair. IV saline locked.
--- NOTE | 2019-09-29 13:20 | PC.NURSE ---
Patient return from radiology per wheelchair.
[2019-09-29] MEDS: methylPREDNISolone SOD SUCC 40 MG VIAL IV PUSH ×2 (13:42→22:57)
--- NOTE | 2019-09-29 16:30 | PC.NURSE ---
On 09/29/19, the graduate nurse Karl Cohen RN, provided care and completed [facility] documentation on this patient. I have reviewed the student's documentation and agree with the findings.
[2019-09-30] VITALS (12 sets, daily range): BP systolic 137–147; BP diastolic 85–90; PULSE 82–101; RESP 16–20; TEMP 36.1–36.7; O2SAT 95–97
[2019-09-30] MEDS: IPRATROPIUM BR 0.02% INH SOLN 0.5 MG/2.5 ML VIAL INHALATION ×4 (01:59→22:20)
[2019-09-30] MEDS: ALBUTEROL SULFATE NEB 2.5 MG/0.5 ML INH 5 MG INHALATION ×4 (01:59→22:20)
[2019-09-30] MEDS: ACETAMINOPHEN 325 MG TABLET 650 MG PO ×3 (02:34→17:31)
[2019-09-30] MEDS: methylPREDNISolone SOD SUCC 40 MG VIAL IV PUSH ×3 (05:35→21:10)
[2019-09-30] MEDS: CHLORTHALIDONE 25 MG TABLET PO (08:31)
[2019-09-30] MEDS: AMLODIPINE BESYLATE 5 MG TABLET 10 MG PO (08:31)
[2019-09-30] MEDS: LORATADINE 10 MG TABLET PO (08:31)
[2019-09-30] MEDS: MONTELUKAST SODIUM 10 MG TABLET PO (08:31)
[2019-09-30] MEDS: FLUTICASONE PROPIONATE 0.05% NA SPR 16 GM BTL (*BKC) 2 SPRAY NASAL (08:33)
--- NOTE | 2019-09-30 09:40 | PC.NURSE ---
Patient has been requesting to have his home flexeril restarted. We have called his pharmacy and his pharmacy states he only received this as a 10 day supply. However, patient is stating he does take it every day at home.. Called and notified Shruthi of patients requests.
--- NOTE | 2019-09-30 10:24 | PM.IMPN ---
Progress Note: A&P Assessment and Plan (1) Acute exacerbation of COPD with asthma: Code(s): J44.1 - Chronic obstructive pulmonary disease with (acute) exacerbation; J45.901 - Unspecified asthma with (acute) exacerbation Status: Acute Assessment and Plan: -----CT shows mucus plugging. Will continue Mucinex and will do Pulmozyme and CPT therapy. I will ask patient pulmonology to see him in consult since he has a significant respiratory history and sounds like he has had repeated hospitalizations for this. He is off the oxygen today and his dyspnea on exertion is better. I think the IV steroids started yesterday did help. We will continue with that at this time. He was started on Symbicort yesterday in lieu of his home inhaler since he is unable to get that. Will continue breathing treatments at this time. Chest x-ray looks okay but was started on abx since his clinical condition yesterday was not improving and he has significant symptoms. PE felt to be less likely since he has had no tachycardia, hypoxia has improved, no personal or family hx, and pt is imporving. Wells score is 0. Sputum cx shows moderate white blood cells an mixed bacterial jatin. Patient is refusing flu swab but his symptoms are consistent with the flu so he was place don isolation. (2) HTN (hypertension) with goal to be determined: Code(s): I10 - Essential (primary) hypertension Status: Chronic Assessment and Plan: ----last blood pressure 137/85. Will continue with home medications. PRN hydralazine w/ parameters. (3) Marijuana smoker: Code(s): F12.90 - Cannabis use, unspecified, uncomplicated Status: Chronic Assessment and Plan: ------Marijuana cessation was advised. (4) Alcohol abuse: Code(s): F10.10 - Alcohol abuse, uncomplicated Status: Acute Assessment and Plan: -----beer cans found in the patient's room. He is denying this. CIWA 0. No hallucinations at this time (5) Torn tendon: Code(s): T14.8XXA - Other injury of unspecified body region, initial encounter Status: Acute Assessment and Plan: -----I checked with the prescription monitoring program and he does take 10 mg of oxycodone for this. I will continue this while he is here but he needs to follow-up with his primary care doctor. He has an appointment later this month (6) Elevated alkaline phosphatase level: Code(s): R74.8 - Abnormal levels of other serum enzymes Status: Acute Assessment and Plan: -----Seen last stay and has improved. Would suggest f/u with pcp for further w/u. Additional Plan Time Spent With Patient Time with patient: 25 - 35 minutes Subjective Date/time seen: 09/30/19 10:24 Interval history: Pt is a 38 y/o male here for COPD exacerbation and mucus plugging. Patient was seen today and states that he is still coughing a lot. He would like his promethazine liquid cough medicine as he says this helps more. He says he feels like he can't get anything up. He overall feels a little better than yesterday but still not himself. He was able to get off the oxygen. He has occasional dyspnea on exertion that he thinks is improving. He has arm pain where he has his torn biceps muscle and he is relying on his pain medication which does help. He has no hallucinations or tremors. He has not had a bowel movement today but thinks he will. He denies diarrhea, chest pain, fevers, chills, or vomiting. Had some slight nausea earlier when he had a cough attack. Review of Systems Review of Systems: All systems reviewed & are unremarkable except as noted in HPI and below Exam Narrative: Exam Narrative: General: Well developed well nourished patient resting comfortably in bed in NAD HEENT: normocephalic Neck: supple Neuro: Alert and oriented x4 CV:RRR Resp: Decreased breath sounds and diffuse wheezing throughout which seems to be improv
--- NOTE | 2019-09-30 12:22 | PC.NURSE ---
Upon entering patients room, he was sleeping comfortably. I actually had to shake him in order to wake him up. Upon waking, patient asked for percocet. Explained to patient that this medication was to be utilized if pain was 7 to 10 and he looked rather comfortable upon entering his room. Still requested pain medication and rates his pain in R shoulder at a 9.
--- NOTE | 2019-09-30 17:38 | PC.NURSE ---
Patient requesting a muscle relaxer, more pain medication, a sleeping aide, and something else for his cough. He is stating that he has not been able to sleep all day. However, every time I have went into patients room he has been asleep with his girlfriend at bedside also sleeping. Educated him that it is 5:30PM and the physicians will not prescribe a sleeping aide for daytime. Patient currently receiving percocet every 6 hours, tylenol every 4, and mucinex. Educated him on his medications. However, he is still cussing at the bedside and making derogatory statements. Called to notify Shruthi of patient requests. Left voicemail.
--- NOTE | 2019-09-30 20:52 | PM.CNPUL ---
History of Present Illness History of Present Illness Consult date: 09/30/19 Chief complaint: COPD EXACERBATION PMFSH Past Medical History Medical History Asthma Hypertension Marijuana smoker Torn tendon right biceps Surgical History Surgical History No significant past surgical history Family History Family History Sibling Diabetes mellitus Father , in intermediate due to unknown causes No problems noted. Mother , at age 37 of unknown causes No problems noted. Social History Social History Smoking packs per day: 1 Smoking cigarettes per day: 20.0 Years smoked: 20 Smoking pack-years: 20.00 Smoking status: Former smoker Tobacco type: cigarettes Second hand tobacco smoke exposure: Yes Smoking end date: 04/28/19 Alcohol intake: unknown Drinks per week: 3 Substance use: unknown Substance use type: does not use Other substance usage details: smokes marijuana 1-2x/week Additional living arrangements comments: Resides with stepmother. 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 Gender identity (if verbalized by the patient): Male Spiritual care concerns: No Agree to blood products: No Meds Home Medications and Allergies Home Medications Medication Instructions Recorded Confirmed Type Incruse Ellipta 1 inh INHALATION DAILY 09/04/19 09/29/19 History albuterol sulfate 2 puff INHALATION BID 09/04/19 09/29/19 History amlodipine [Norvasc] 10 mg PO DAILY 09/04/19 09/29/19 History chlorthalidone 25 mg PO DAILY 09/04/19 09/29/19 History fluticasone propion-salmeterol 1 puff INHALATION BID 09/04/19 09/29/19 History [AirDuo RespiClick] fluticasone propionate [Flonase 2 spray INTRANASAL DAILY 09/04/19 09/29/19 History Allergy Relief] loratadine 10 mg PO DAILY 09/04/19 09/29/19 History montelukast 10 mg PO DAILY 09/04/19 09/29/19 History oxycodone-acetaminophen [Percocet] 1 tablet PO Q6H PRN #30 tablet 09/05/19 09/29/19 Rx promethazine 12.5 mg PO TID PRN #240 ml 09/05/19 09/29/19 Rx Allergies Allergy/AdvReac Type Severity Reaction Status Date / Time No Known Allergies Allergy Verified 09/29/19 01:41 Vital Signs Vital Signs - 24 hr 09/29/19 22:00 09/30/19 01:59 09/30/19 02:10 Temperature 36.8 C Pulse Rate 103 H 96 101 H Respiratory Rate 22 H 20 20 Blood Pressure 157/91 H Pulse Oximetry 93 09/30/19 06:00 09/30/19 08:50 09/30/19 13:12 Temperature 36.7 C Pulse Rate 82 88 90 Respiratory Rate 20 20 20 Blood Pressure 137/85 Pulse Oximetry 97 95 09/30/19 14:00 09/30/19 15:30 09/30/19 15:40 Temperature 36.3 C L Pulse Rate 97 85 88 Respiratory Rate 16 20 20 Blood Pressure 147/90 H Pulse Oximetry 95 Results Laboratory Findings CBC and BMP: 09/29/19 01:49 09/29/19 01:49 Abnormal lab findings: Abnormal Labs 09/29/19 09/29/19 01:49 01:49 MPV 10.5 H Neut % (Auto) 31.6 L Eos % (Auto) 16.9 H Lymph # (Auto) 3.42 H Eos # (Auto) 1.4 H Alkaline Phosphatase 187 H Total Protein 9.0 H
[2019-09-30] MEDS: MENTHOL 10% / METHYL SALICYLATE 15% 57 GM TUBE 1 APPLIC TOPICAL (21:21)
[2019-09-30] MEDS: BENZONATATE 100 MG CAPSULE PO (21:21)
[2019-09-30] MEDS: DORNASE ALFA INH SOLN 1 MG/ML 2.5 ML AMP 2.5 MG INHALATION (22:20)
[2019-10-01] MEDS: MELATONIN 3 MG TABLET 6 MG PO (00:40)
[2019-10-01 02:55] VITALS: PULSE 93; RESP 20
[2019-10-01] MEDS: ALBUTEROL SULFATE NEB 2.5 MG/0.5 ML INH 5 MG INHALATION ×2 (03:03→08:48)
[2019-10-01] MEDS: IPRATROPIUM BR 0.02% INH SOLN 0.5 MG/2.5 ML VIAL INHALATION ×2 (03:03→08:49)
[2019-10-01 03:07] VITALS: PULSE 94; RESP 20
[2019-10-01] MEDS: ACETAMINOPHEN 325 MG TABLET 650 MG PO ×2 (04:09→12:18)
[2019-10-01 06:00] VITALS: BP 142/81; PULSE 95; RESP 16; TEMP 36.1; O2SAT 93
[2019-10-01] MEDS: methylPREDNISolone SOD SUCC 40 MG VIAL IV PUSH (06:03)
[2019-10-01] MEDS: BENZONATATE 100 MG CAPSULE PO (07:37)
[2019-10-01] MEDS: MONTELUKAST SODIUM 10 MG TABLET PO (08:17)
[2019-10-01] MEDS: AMLODIPINE BESYLATE 5 MG TABLET 10 MG PO (08:17)
[2019-10-01] MEDS: LORATADINE 10 MG TABLET PO (08:17)
[2019-10-01] MEDS: CHLORTHALIDONE 25 MG TABLET PO (08:17)
[2019-10-01] MEDS: FLUTICASONE PROPIONATE 0.05% NA SPR 16 GM BTL (*BKC) 2 SPRAY NASAL (08:18)
[2019-10-01 08:45] VITALS: PULSE 88; RESP 20
[2019-10-01 08:55] VITALS: PULSE 92; RESP 20
--- NOTE | 2019-10-01 14:07 | PM.DS ---
DS: Diagnosis Admitting Diagnosis Admitting Diagnosis: Chronic obstructive pulmonary disease with (acute) exacerbation Discharge Diagnosis (1) Acute exacerbation of COPD with asthma: Code(s): J44.1 - Chronic obstructive pulmonary disease with (acute) exacerbation; J45.901 - Unspecified asthma with (acute) exacerbation Status: Acute (2) HTN (hypertension) with goal to be determined: Code(s): I10 - Essential (primary) hypertension Status: Chronic (3) Marijuana smoker: Code(s): F12.90 - Cannabis use, unspecified, uncomplicated Status: Chronic Assessment and Plan: ------Marijuana cessation was advised. (4) Alcohol abuse: Code(s): F10.10 - Alcohol abuse, uncomplicated Status: Acute (5) Torn tendon: Code(s): T14.8XXA - Other injury of unspecified body region, initial encounter Status: Acute (6) Elevated alkaline phosphatase level: Code(s): R74.8 - Abnormal levels of other serum enzymes Status: Acute DS: Summary Hospital Course Reason for hospitalization: Asthma exacerbation Hospital Course: Pt is a 38 y/o male who presented to the ED for SOB who was found to be in an asthma exacerbation with mucus plugging. Temperature in the ER were 36.4, pulse 130, respiratory rate 33, blood pressure 171/111, pulse ox 95 on room air. CBC within normal limits. BMP within normal limits. Chest x-ray showed no acute cardiopulmonary disease. Patient was admitted to the hospitalist service and started on steroids, antibiotics for presumed pneumonia, and did require oxygen. He had a significant amount of wheezing and a CTA was performed which showed diffuse bronchitis with scattered mucus plugging throughout all lung cunningham and lobes. PE seem less likely as patient did not have any history of blood clots, family history of blood clots, and his wells score 0. Patient continue this treatment and improved. He saw pulmonology why he was here who recommended oral steroids with no antibiotics as he is going to treat him as an asthma exacerbation. His home inhalers were adjusted. The patient also right arm pain from a chronic torn tendon. Overall, the patient improved with this treatment. He has plans to follow-up with our sports betting manager at discharge. He is also going to follow up with primary care physician about his torn muscle and to follow him routinely. The patient felt good at the day of discharge and wanted to go home. He was educated about the worrisome signs and symptoms to come back to emergency room for and was discharged in stable condition. Time spent discussing smoking cessation with patient: more than 10 minutes Status at Discharge Functional status at discharge: independent ambulation Overall status at discharge: patient is back to baseline Time Spent with Patient Time attestation: Total time spent providing and/or coordinating discharge services:38 min Time spent: Greater than 30 minutes Exam Narrative: Exam Narrative: General: Well developed well nourished patient resting comfortably in bed in NAD HEENT: normocephalic Neck: supple Neuro: Alert and oriented x4 CV:RRR Resp: Decreased breath sounds with occasional wheeze--improved Abd: Soft, non distended. No pain to palpation. Positive bowel sounds Extremities: No swelling, erythema, or pain to palpation on the LE. Right bicep with proximal abnormality consistent with bicep tendon rupture. DS: Data Data Completed and Pending Labs on day of discharge: Preliminary micro results at discharge 09/29/19 13:53 Sputum Culture - Preliminary Sputum Discharge Plan Discharge Attending physician on discharge: Sj Woods Consulting providers: Jazmine Kimble Discharging Clinician: Shruthi Hamlin Patient Disposition: Home, Self-Care Activity: as tolerated Diet: regular Discharge Instructions: -Do not smoke marijuana. Although it is legal in [place], it is bad for
--- NOTE | 2019-10-01 14:41 | PM.PNPUL ---
Progress Note: A&P Assessment and Plan (1) Asthma: Qualifiers: Asthma complication type: with acute exacerbation Asthma persistence: persistent Asthma severity: severe Qualified Code(s): J45.51 - Severe persistent asthma with (acute) exacerbation Code(s): J45.909 - Unspecified asthma, uncomplicated Status: Acute Assessment and Plan: I don't see evidence of COPD at the moment. I believe he has Asthma with peripheral eosinophilia with an acute mild exacerbation. - Can discharge home on Symbicort 160/4.5 mcg 2 puffs Q12h via spacer device - continue Albuterol 2-4 puffs QID PRN ONLY - d/c Incruse and Singulair - ouptatient PFT in 2 weeks - avoid marijuana smoking - f/u with us in pulmonary clnic in 2-3 weeks. Time Spent With Patient Time with patient: 15 - 25 minutes Subjective Date/time seen: 10/01/19 14:41 Interval history: 38 y/o male who had Asthma as a child presents with an exacerbation likely due to non compliance with medication. His Asthma symptoms subsided during his teenage years but came back a few years ago. He did smoke from age of [age] but only about 1-2 cigs/day and hence his smoking history is not considered significant to cause to COPD. Furthermore his I viewed his CT chest which shows no significant evidence of emphysema/COPD. He does have significant peripheral eosinophilia. He does admit to smoking marijuana infrequently. He says when he was on symbicort he rarely had to use his rescue inhaler but since he ran out he has used to use it very frequently. Prior to admission, he denies fever, sore throat, rhinnorhea, body aches or diarrhea. Cough is productive of some white sputum. Review of Systems Review of Systems: All systems reviewed & are unremarkable except as noted in HPI and below Exam Const: General: comfortable and no acute distress HENMT: Mouth: Yes moist mucous membranes Neck: Neck: supple and no JVD Resp: Auscultation: wheezes and diminished lung sounds Cardio: Rate: regular rate Rhythm: regular rhythm GI: Auscultation: normal bowel sounds Skin: General skin exam: normal color and no rashes or lesions noted Neuro: Speech: normal speech Extrem: General: normal to inspection, no edema and no pedal edema Objective Data Vital Signs Vital Signs: Vital Signs - 24 hr 09/30/19 15:30 09/30/19 15:40 09/30/19 22:00 Temperature 36.1 C L Pulse Rate 85 88 90 Respiratory Rate 20 20 16 Blood Pressure 145/86 H Pulse Oximetry 95 09/30/19 22:20 09/30/19 22:31 09/30/19 22:34 Temperature Pulse Rate 92 90 Respiratory Rate 20 20 Blood Pressure Pulse Oximetry 95 10/01/19 02:55 10/01/19 03:07 10/01/19 06:00 Temperature 36.1 C L Pulse Rate 93 94 95 Respiratory Rate 20 20 16 Blood Pressure 142/81 H Pulse Oximetry 93 10/01/19 08:45 10/01/19 08:55 Temperature Pulse Rate 88 92 Respiratory Rate 20 20 Blood Pressure Pulse Oximetry Intake/Output Intake/Output: Intake & Output 09/28/19 09/29/19 09/30/19 10/01/19 23:59 23:59 23:59 23:59 Intake Total 1290 3530 1160 Balance 1290 3530 1160 Meds/Results Medications: Active Medications Generic Name Dose Route Start Last Admin Trade Name Freq PRN Reason Stop Dose Admin Acetaminophen 650 mg 09/29/19 03:01 10/01/19 12:18 Tylenol Tablet PO 650 mg Q4H PRN Administration Mild Pain (1-3) or Fever Albuterol 5 mg 09/29/19 08:00 10/01/19 08:48 Albuterol Sulf Neb 2.5mg/0.5ml INHALATION 5 mg Q6HRT TARIQ Administration Amlodipine Besylate 10 mg 09/29/19 09:00 10/01/19 08:17 Norvasc PO 10 mg DAILY TARIQ Administration Benzonatate 100 mg 09/30/19 18:05 10/01/19 07:37 Tessalon Perles PO 100 mg TID PRN Administration Cough Budesonide/Formoterol Fumarate 2 puff 09/29/19 20:00 10/01/19 08:49 Symbicort 160-4.5 Mcg (*Sp) Inhaler INHALATION 2 puff Q12HRT TARIQ Administration Chlorthalidone 25 mg 09/29/19 09:0
== END 2019-10-01 15:24 | disposition home or self-care (01) ==
LOC: ANHED 02:55 → ANH2MED 03:14
PROVIDERS: Admitting Provider Family Medicine; Emergency Provider Family Medicine; Visit Provider Internal Medicine
DX: J45.51 Severe persistent asthma with (acute) exacerbation (principal); J44.1 Chronic obstructive pulmonary disease with (acute) exacerbation; I10 Essential (primary) hypertension; F12.90 Cannabis use, unspecified, uncomplicated; F10.10 Alcohol abuse, uncomplicated; S46.211A Strain of muscle, fascia and tendon of other parts of biceps, right arm, initial encounter; R74.8 Abnormal levels of other serum enzymes; Z87.891 Personal history of nicotine dependence; Z79.899 Other long term (current) drug therapy
CPT/HCPCS: 36415; 71045; 71275; 80053; 83880; 84484; 85025; 87070; 87205; 93005; 94640; 94667; 94668; 96365; 96367; 96374; 96375; 96376; 99285; A9270; G0378; G0379; J0456; J0696; J2270; J2405; J2920; J2930; J7060; J7512; Q9967